=== PATIENT | male | born 1990 | race Caucasian/White ===

== ENCOUNTER 2024-11-20 12:25 | Inpatient (IN) | payer MEDICAID, OTHER ==
[~2024-11-20] VITALS: Ht 177.8 cm; Wt 65.6 kg
--- NOTE | 2024-11-20 13:21 | DVH ---
EXAM: XY CHEST TWO VIEWS ROUTINE HISTORY: CHEST PAIN COMPARISON: None TECHNIQUE: 2 views of the chest were performed. FINDINGS: No pneumothorax, pulmonary edema, or consolidative infiltrates. The heart is not enlarged. No fract ures are identified about the bony thorax. IMPRESSION: No acute intrathoracic process.
--- NOTE | 2024-11-20 13:55 | ED.PDOC ---
GI ASSESSMENT HPI Comments 33 y/o M, presents to the ED for CC of abdominal pain. Patient states, that he has been experiencing abdominal pain xdays. Patient, relays that he is unable to consume regular foods without abdominal discomfort. Patient denies, having similar symptoms in the past. Patient denies social history. Patient denies nausea, vomiting, diarrhea, fever, or headache. No other symptoms or modifying factors at this time. Chief Complaint: Abdominal Pain Time Seen by MD: 13:15 Reviewed Notes: Nurses Notes, Medications, Allergies Information Source: Patient, Relative (Mother) Mode of Arrival: Ambulatory Timing: Days Duration: Since onset Prehospital treatment: None Quality: None Vomitus: None Stool: Normal Severity: None Recent: None Recent Hx of: None Pain Location: Diffuse Modifying Factors: Nothing Associated sign and symptoms: None Past Medical History PAST MEDICAL HISTORY: Asthma Surgical History: Appendectomy Surgical History (Other): RIGHT AND LEFT EARDRUM Family History Family History: Unknown Social History Smoker: Non-Smoker Alcohol: Denies ETOH Use Drugs: Denies Drug Use Lives In: Home Constitutional: denies: chills, diaphoresis, fatigue, fever, malaise, sweats, weakness, others EENTM: denies: blurred vision, double vision, ear bleeding, ear discharge, ear drainage, ear pain, ear ringing, eye pain, eye redness, hearing loss, mouth pain, mouth swelling, nasal discharge, nose bleeding, nose congestion, nose pain, photophobia, tearing, throat pain, throat swelling, voice changes, others Respiratory: denies: cough, hemoptysis, orthopnea, SOB at rest, shortness of breath, SOB with excertion, stridor, wheezing, others Cardiovascular: denies: chest pain, dizzy spells, diaphoresis, Dyspnea on exertion, edema, irregular heart beat, left arm pain, lightheadedness, palpitations, PND, syncope, others Gastrointestinal: reports: abdominal pain; denies: abdomen distended, blood streaked bowels, constipated, diarrhea, dysphagia, difficulty swallowing, hematemesis, melena, nausea, poor appetite, poor fluid intake, rectal bleeding, rectal pain, vomiting, others Genitourinary: denies: burning, dysuria, flank pain, frequency, hematuria, incontinence, penile discharge, penile sore, pain, testicle pain, testicle swelling, urgency, others Neurological: denies: dizziness, fainting, headache, left sided numbness, left sided weakness, numbness, paresthesia, pre-existing deficit, right sided numbness, right sided weakness, seizure, speech problems, tingling, tremors, weakness, others Musculoskeletal: denies: back pain, gout, joint pain, joint swelling, muscle pain, muscle stiffness, neck pain, others Integumetry: denies: bruises, change in color, change in hair/nails, dryness, laceration, lesions, lumps, rash, wounds, others Allergic/Immunocompromised: denies: Difficulty Healing, Frequent Infections, Hives, Itching, others Hematologic/Lymphatic: denies: anemia, blood clots, easy bleeding, easy bruising, swollen glands, others Endocrine: denies: excessive hunger, excessive sweating, excessive thirst, excessive urination, flushing, intolerance to cold, intolerance to heat, unexplained weight gain, unexplained weight loss, others Psychiatric: denies: anxiety, bipolar disorder, depression, hopeless, panic disorder, schizophrenia, sleepless, suicidal, others All Other Systems: Reviewed and Negative Physical Exam General Appearance: Moderate Distress HEENT: Normal ENT Inspection, Pharynx Normal, TMs Normal Neck: Full Range of Motion, Non-Tender, Normal, Normal Inspection Respiratory: Chest Non-Tender, Lungs Clear, No Accessory Muscle Use, No Respiratory Distress, Normal Breath Sounds Cardiovascular: No Edema, No JVD, No Murmur, No Gallop, Normal Peripheral Pulses, Regular Rate/Rhythm Breast Exam: Deferred Gastrointestinal: Epigastric Genitalia: Deferred Pelvic: Deferred Rectal: Deferred Extremities: No calf tenderness, Normal capillary refill, Normal inspection, Normal range of motion, Non-tender, No pedal edema Musculoskeletal : Apperance: Normal Neurologic: Alert, hook loader II-XII nml as Tested, No Motor Deficits, Normal Affect, Normal Mood, No Sensory Deficits Cerebellar Function: Normal Reflexes: Normal Skin: Dry, Normal Color, Warm Peripheral Pulses: 3+ Radial (R), 3+ Radial (L) Lymphatic: No Adenopathy Was a procedure done? Was a procedure done?: No GI differential Dx Differential Diagnosis: Constipation, Diverticular disease, Esophagitis, Gastritis/PUD, Gastroenteritis, Electrolyte Imbalance, Food Poisoning, Bacterial, Viral X-Ray, Labs, Meds, VS Vital Signs Date Time Temp Pulse Resp B/P (MAP) Pulse Ox O2 Delivery O2 Flow Rate FiO2 11/20/24 16:07 98.6 81 109/77 (88) 98 98.6 11/20/24 13:15 98.2 98 12 119/73 (88) 98 11/20/24 13:07 54 Lab Test 11/20/24 14:33 11/20/24 13:44 Range/Units Troponin I High Sensitivity < 3 L 3 L </=54 ng/L White Blood Count 3.5 L 4.4-10.8 10^3/uL Red Blood Count 5.16 4.5-5.90 10^6/uL Hemoglobin 15.0 13.5-17.5 g/dL Hematocrit 43.4 41.0-53.0 % Mean Corpuscular Volume 84.0 80.0-100.0 fL Mean Corpuscular Hemoglobin 29.1 28.0-32.0 pg Mean Corpuscular Hemoglobin Concent 34.6 32.0-36.0 g/dL Red Cell Distribution Width 13.4 11.8-14.3 % Platelet Count 243 140-450 10^3/uL Mean Platelet Volume 7.6 6.9-10.8 fL Neutrophils (%) (Auto) 45.2 37.0-80.0 % Lymphocytes (%) (Auto) 38.7 10.0-50.0 % Monocytes (%) (Auto) 15.1 H 0.0-12.0 % Eosinophils (%) (Auto) 0.2 0.0-7.0 % Basophils (%) (Auto) 0.8 0.0-2.0 % Neutrophils # (Auto) 1.6 1.6-8.6 10 ^3/uL Lymphocytes # (Auto) 1.3 0.4-5.4 10 ^3/uL Monocytes # (Auto) 0.5 0-1.3 10 ^3/uL Eosinophils # (Auto) 0 0-0.8 10 ^3/uL Basophils # (Auto) 0 0-0.2 10 ^3/uL Nucleated Red Blood Cells 0.1 % Sodium Level 138 136-145 mmol/L Potassium Level 3.8 3.5-5.1 mmol/L Chloride Level 100 98-107 mmol/L Carbon Dioxide Level 31 20-31 mmol/L Anion Gap 7 5-15 Blood Urea Nitrogen 11 9-23 mg/dL Creatinine 0.94 0.700-1.30 mg/dL Glomerular Filtration Rate Calc 110 >90 mL/min BUN/Creatinine Ratio 11.7 10.0-20.0 Serum Glucose 94 74-106 mg/dL Calcium Level 9.9 8.7-10.4 mg/dL Total Bilirubin 0.5 0.2-1.0 mg/dL Aspartate Amino Transferase (AST) 61 H 13-40 U/L Alanine Aminotransferase (ALT) 55 H 7-40 U/L Alkaline Phosphatase 148 H 46-116 U/L Total Protein 7.7 5.7-8.2 g/dL Albumin 5.1 H 3.2-4.8 g/dL [place] [id number] Ph: [phone] DIAGNOSTIC IMAGING Diagnostic Imaging Report : [id number] Signed PATIENT: CHRIS MICHELE ACCT: [id number] UNIT: [id number] : 1990 LOC: ER ROOM / BED: / AGE / SEX: 33 / M ADM STATUS: REG ER SERVICE 1301 ORDERING PHYSICIAN: JEVON CHAVEZ MD PROCEDURE(s): CXR2 - CHEST TWO VIEWS ROUTINE REASON: CHEST PAIN ORDER NUMBER(s): [id number], ACCESSION NUMBER(s): [id number] EXAM: XY CHEST TWO VIEWS ROUTINE HISTORY: CHEST PAIN COMPARISON: None TECHNIQUE: 2 views of the chest were performed. FINDINGS: No pneumothorax, pulmonary edema, or consolidative infiltrates. The heart is not enlarged. No fractures are identified about the bony thorax. IMPRESSION: No acute intrathoracic process. ATED BY: RACIEL FAJARDO MD DICTATED DATE/TIME: 11/20/241317 SIGNED BY: RACIEL FAJARDO MD SIGNED DATE/TIME: 11/20/241317 CC: Patient alert. Complaining of epigastric pain. Vitals stable. Answering all questions. Liver profile elevated. Chest x-ray reviewed does not show any acute process. Reviewed his previous visit. Explained to the patient. Continue cardiac monitoring. Time of 1ST Reevaluation: 13:45 Reevaluation 1ST: Unchanged Patient Education/Counseling: Diagnosis, Treatment Family Education/Counseling: Diagnosis, Treatment Departure 1 Departure Time of Disposition: 16:24 Impression: Primary Impression: Acute abdominal pain Additional Impression: Elevated liver enzymes Disposition: ADMITTED INPATIENT Admit to: Med Surg Condition: Guarded Critical Care Note Critical Care Time?: No Stability Stability form required: No Heart Score Heart Score: Heart Score Response (Comments) Value History N/A 0 EKG N/A 0 Age N/A 0 Risk Factors N/A 0 Troponin N/A 0 Total 0 I personally scribed for MAGDALENA TAFOYA MD ([email or web address]) on 11/20/24 at 13:55. Electronically submitted by Bettye Cooper ([email or web address]). I personally scribed for MAGDALENA TAFOYA MD ([email or web address]) on 11/20/24 at 15:12. Electronically submitted by Bettye Cooper ([email or web address]). MAGDALENA TAFOYA MD Nov 20, 2024 13:55
[2024-11-20 14:02] LABS: Basophils # (auto) 0 10 ^3/uL (0-0.2); Basophils % (auto) 0.8 % (0.0-2.0); Eosinophils # (auto) 0 10 ^3/uL (0-0.8); Eosinophils % (auto) 0.2 % (0.0-7.0); Hematocrit 43.4 % (41.0-53.0); Lymphocytes # (auto) 1.3 10 ^3/uL (0.4-5.4); Lymphocytes % (auto) 38.7 % (10.0-50.0); Mean Corpuscular Hemoglobin 29.1 pg (28.0-32.0); Mean Corpuscular Hgb Conc. 34.6 g/dL (32.0-36.0); Monocytes # (auto) 0.5 10 ^3/uL (0-1.3); Monocytes % (auto) 15.1 % (0.0-12.0); Neutrophils # (auto) 1.6 10 ^3/uL (1.6-8.6); Neutrophils % (auto) 45.2 % (37.0-80.0); Nucleated Red Blood Cells % 0.1 %; Platelet Count (auto) 243 10^3/uL (140-450); Red Blood Cells 5.16 10^6/uL (4.5-5.90); Red Cell Distribution Width 13.4 % (11.8-14.3); White Blood Cell 3.5 10^3/uL (4.4-10.8)
[2024-11-20 14:29] LABS: Anion Gap 7 (5-15); BUN/Creatinine Ratio 11.7 (10.0-20.0); Bilirubin, Total 0.5 mg/dL (0.2-1.0); Blood Urea Nitrogen 11 mg/dL (9-23); Calcium 9.9 mg/dL (8.7-10.4); Carbon Dioxide 31 mmol/L (20-31); Chloride 100 mmol/L (98-107); Glucose 94 mg/dL (74-106); Potassium 3.8 mmol/L (3.5-5.1); Sodium 138 mmol/L (136-145); Total Protein 7.7 g/dL (5.7-8.2)
[2024-11-20 14:31] LABS: Alkaline Phosphatase 148 U/L (46-116)
[2024-11-20 14:32] LABS: Alanine Aminotransferase 55 U/L (7-40); Albumin 5.1 g/dL (3.2-4.8); Aspartate Aminotransferase 61 U/L (13-40)
--- NOTE | 2024-11-20 16:48 | DVH ---
CT ABDOMEN AND PELVIS WITHOUT CONTRAST CLINICAL HISTORY: liver TECHNIQUE: Multiple contiguous axial images of the abdomen and pelvis without intravenous contrast. The images were reformatted degenerate coronal and sagittal reconstructions. All CT scans at this medical facility are performed using dose modulation techniques as appropriate t o a performed exam including the following:Automated exposure control was utilized; adjustment of the MA and/or KV according to patient size; and use of iterative reconstruction technique. Radiation Dose Information: CT Dose: CTDI volume is 5.6 mGy. Dose-length product is 306 mGy*cm Comparison: None FINDINGS: Evaluation of the abdomen and pelvis is limited without intravenous contrast. The liver, gallbladder, pancreas, kidneys, adrenal glands, and spleen appear within normal limits. There is no gross evidence of abdominal lymphadenopathy. There is no free fluid or free air. The stomach grossly appears unremarkable. The small and large bowel loops demonstrate normal caliber and appear within normal limits.. The appendix is not readily seen in the right lower quadrant abdo men. There are no secondary signs of acute appendicitis. The abdominal aorta and IVC appear within normal limits. Bladder is poorly filled limiting evaluation. Pelvic organ appears within normal limits. There is no gross evidence of a pelvic mass. There is no free fluid collection. Lung bases are clear. There is no acute osseous abnormality. IMPRESSION: 1. There is no acute process in the abdomen and pelvis. HS:Y
[2024-11-20 19:27] VITALS: RESP 15; O2SAT 98
[2024-11-20 21:16] LABS: Urine Bacteria None Seen /hpf (None Seen)
[2024-11-20 21:27] LABS: Urine Amorphous Crystal FEW /hpf (None Seen); Urine Blood 1+ /uL (Negative); Urine Clarity Turbid (Clear); Urine Color Yellow (Yellow); Urine Mucus FEW (None Seen); Urine Protein, UAD TRACE (Negative); Urine Squamous Epithelial Cell FEW /hpf (<5); Urine Urobilinogen Normal (Negative); Urine WBC 3 /HPF (0-3); Urine pH 5.5 (5.0-9.0)
--- NOTE | 2024-11-20 22:21 | DVHHPRES ---
History of Present Illness Resident Creating Document: ELIZABETH MENDIETA RESDIENT History of Present Illness This is a 33-year-old past medical history of mild intellectual disability, asthma brought to the hospital due to abdominal pain for 1-2 weeks. Per patient's mother's/caregiver the patient has been complaining of epigastric abdominal pain, constant, burning in nature, 7/10 in intensity which fluctuates over time but with no specific exacerbating or relieving factor. Patient also reports dry cough. Patient denies fever, chest pain, shortness of breaths, nausea, vomiting, constipation or diarrhea. PMHx: Intellectual disability, asthma PSHx: Appendectomy 1 year back Social history: Patient lives with the mother at home, mother is caregiver due to patient's intellectual disability, patient is independent in most of daily activities, denies small, drinking or any other drug use Home medication: Inhaler for the asthma Review of Systems Review of Systems General: patient denies fever, fatigue, weaknes, sweating, any recent changes in appetite and weight HEENT: No headaches, visiual changes, hearing loss, tinnitus, nasal congestion and discharge, and sore throat. Cardiovascular: Denies chest pain, palpitations, dyspnea on exertion, orthopnea, or claudication. Respiratory: Reports dry cough Gastrointestinal: Reports abdominal pain Genitourinary: No dysuria, hematuria, discharge, frequency, urgency, nocturia, incontinence, and urinary retention. Endocrine: No heat or cold intolerance, polydipsia, polyuria, and polyphagia. Neurological: No dizziness, extremity weakness and numbness, tremors, gait disturbance, seizures, and memory impairment. Psychiatric: Denies depression, anxiety,or insomnia. Musculoskeletal: Denies neck pain, stiffness and swelling, back pain, muscle weakness, joint pain, stiffness, swelling, or limited range of motion. Skin: No rashes, itching, skin lesion, changes in hair, nail, skin texture and breast. Hematologic/Lymphatic: Denies easy bruising, bleeding tendencies, or lymph node enlargement. Allergies: Uncoded Allergies: codiene (Allergy, Unknown, 11/21/24) Exam Vital Signs Vital Signs Date Time Temp Pulse Resp B/P (MAP) Pulse Ox O2 Delivery O2 Flow Rate FiO2 11/20/24 19:31 98.1 71 20 101/67 (78) 100 98.1 11/20/24 19:31 Room Air 1/28/25 19:27 0 21 Exam General Appearance: Alert, Oriented X3, Cooperative, No acute distress HEENT: Atraumatic, PERRLA, EOMI, Mucous membrane moist/pink Respiratory: Clear to auscultation, Normal air movement Cardiovascular: Regular rate, Normal S1, Normal S2, No murmurs, no chest wall tenderness Abdominal: Mild epigastric tenderness on palpation Extremities: No clubbing, No cyanosis, No edema, Normal pulses, No tenderness/swelling Skin: No rashes, No breakdown, No significant lesion Neuro: Normal gait, Normal speech, Strength at 5/5 X4 ext, Normal tone, Sensation intact, Cranial nerves 3-12 NL, Reflexes 2+ Psych/Mental Status: Mental status NL, Mood NL Labs/Xrays Labs Test 11/20/24 21:14 11/20/24 17:04 11/20/24 13:44 Range/Units Urine Color Yellow Yellow Urine Clarity Turbid H Clear Urine pH 5.5 5.0-9.0 Urine Specific [place] 1.020 1.001-1.035 Urine Protein Trace H Negative Urine Ketones Negative Negative Urine Blood 1+ H Negative /uL Urine Nitrite Negative Negative Urine Bilirubin Negative Negative Urine Urobilinogen Normal Negative mg/dL Urine Leukocyte Esterase Negative Negative /uL Urine RBC 3 0 - 3 /hpf Urine Microscopic WBC 3 0-3 /HPF Urine Squamous Epithelial Cells Few <5 /hpf Urine Amorphous Crystals Few None Seen /hpf Urine Bacteria None seen None Seen /hpf Urine Mucus Few None Seen Urine Glucose Normal Normal mg/dL Troponin I High Sensitivity 3 L </=54 ng/L White Blood Count 3.5 L 4.4-10.8 10^3/uL Red Blood Count 5.16 4.5-5.90 10^6/uL Hemoglobin 15.0 13.5-17.5 g/dL Hematocrit 43.4 41.0-53.0 % Mean Corpuscular Volume 84.0 80.0-100.0 fL Mean Corpuscular Hemoglobin 29.1 28.0-32.0 pg Mean Corpuscular Hemoglobin Concent 34.6 32.0-36.0 g/dL Red Cell Distribution Width 13.4 11.8-14.3 % Platelet Count 243 140-450 10^3/uL Mean Platelet Volume 7.6 6.9-10.8 fL Neutrophils (%) (Auto) 45.2 37.0-80.0 % Lymphocytes (%) (Auto) 38.7 10.0-50.0 % Monocytes (%) (Auto) 15.1 H 0.0-12.0 % Eosinophils (%) (Auto) 0.2 0.0-7.0 % Basophils (%) (Auto) 0.8 0.0-2.0 % Neutrophils # (Auto) 1.6 1.6-8.6 10 ^3/uL Lymphocytes # (Auto) 1.3 0.4-5.4 10 ^3/uL Monocytes # (Auto) 0.5 0-1.3 10 ^3/uL Eosinophils # (Auto) 0 0-0.8 10 ^3/uL Basophils # (Auto) 0 0-0.2 10 ^3/uL Nucleated Red Blood Cells 0.1 % Sodium Level 138 136-145 mmol/L Potassium Level 3.8 3.5-5.1 mmol/L Chloride Level 100 98-107 mmol/L Carbon Dioxide Level 31 20-31 mmol/L Anion Gap 7 5-15 Blood Urea Nitrogen 11 9-23 mg/dL Creatinine 0.94 0.700-1.30 mg/dL Glomerular Filtration Rate Calc 110 >90 mL/min BUN/Creatinine Ratio 11.7 10.0-20.0 Serum Glucose 94 74-106 mg/dL Calcium Level 9.9 8.7-10.4 mg/dL Total Bilirubin 0.5 0.2-1.0 mg/dL Aspartate Amino Transferase (AST) 61 H 13-40 U/L Alanine Aminotransferase (ALT) 55 H 7-40 U/L Alkaline Phosphatase 148 H 46-116 U/L Total Protein 7.7 5.7-8.2 g/dL Albumin 5.1 H 3.2-4.8 g/dL Assessment/Plan Assessment/Plan Intractable abdominal pain, likely due to gastritis Abdominal CT scan is unremarkable IV normal saline Protonix Ondansetron p.r.n. History of asthma, stable History of intellectual disability Transaminitis Liver ultrasound shows mild apparent gallbladder wall thickening DIET: Clear liquid diet GI PROPHYLAXIS:: Protonix DISPOSITION: Med/surge Patient's status and paln discussed with the patient and mother/caregiver at the bedside. Case discussed with Dr. Foster. Plan discussed with: Patient, Other (RN) Date of Service: Nov 20, 2024 Billing Provider: ARSH IVAN MD Common Visit Codes: [id number] INP/OBS CARE (HIGH) ELIZABETH MENDIETA RESDIFATIMAH Nov 20, 2024 22:21 ARSH IVAN MD Nov 21, 2024 23:14
[2024-11-20] MEDS: SODIUM CHLORIDE 0.9% 1,000 ML IV ONE (23:00)
[2024-11-20] MEDS ORDERED: ONDANSETRON HCL 4 MG/2 ML VIAL IV PRN (23:00)
[2024-11-20 23:18] LABS: Lipase 32 U/L (12-53)
[2024-11-20 23:19] LABS: Magnesium 2.2 mg/dL (1.6-2.6)
[2024-11-20 23:45] LABS: Blood Alcohol < 3.0 mg/dL (<10)
[2024-11-21] VITALS (9 sets, daily range): BP systolic 101–114; BP diastolic 50–68; PULSE 65–105; RESP 14–62; TEMP 97.9–98.5; O2SAT 96–98
--- NOTE | 2024-11-21 01:31 | DVH ---
RIGHT UPPER QUADRANT ABDOMINAL ULTRASOUND CLINICAL HISTORY: raised LFT COMPARISON: None TECHNIQUE: Grayscale and color Doppler ultrasound imaging of the right upper quadrant is performed. FINDINGS: Pancreas: Visualized portions appear grossly unremarkable. Liver: No discrete hepatic lesions as visualized. The portal vein appears patent. Gallbladder: No sizable cholelithiasis. No sonographic fernández's sign elicited. Gallbladder wall thick ening may be in part due to underdistention. Common bile duct: Nondilated. Right Kidney: Measures 10.7 cm in length. No hydronephrosis. Right upper quadrant Inferior vena cava: The visualized portions appear grossly patent. IMPRESSION: Mild apparent gallbladder wall thickening may be in part due to underdistention. Otherwise no sonogra phic evidence of cholelithiasis or cholecystitis at this time. HS:Y
[2024-11-21 03:25] LABS: COVID19 ANTIGEN SOFIA FIA NEGATIVE (NEGATIVE); Rapid Influenza A Negative (Negative); Rapid Influenza B Negative (Negative)
[2024-11-21 04:52] LABS: Amphetamine Screen, Urine Neg (NEGATIVE); Barbiturate Scree,Urine Neg (NEGATIVE); Benzodiazephine Screen, Urine Neg (NEGATIVE); Cannabinoid Screen, Urine Neg (NEGATIVE); Cocaine Screen, Urine Neg (NEGATIVE); Opiate Scree,Urine Neg (NEGATIVE); Phencyclidine Screen, Urine Neg (NEGATIVE)
[2024-11-21] MEDS: PANTOPRAZOLE 40 MG/10 ML VIAL INJ IV ONE (05:21)
--- NOTE | 2024-11-21 10:42 | DVHPN2 ---
Subjective The patient is seen and examined at bedside. He is very slow response. Complain of abdominal pain. Reviewed: Care Plan, H&P, Labs, Medications, Previous Orders, Radiology Changes from previous H/P or p: No Changes Objective Vitals Vital Signs Date Time Temp Pulse Resp B/P (MAP) Pulse Ox O2 Delivery O2 Flow Rate FiO2 11/21/24 09:00 97.9 71 14 104/54 (71) 97 97.9 11/21/24 04:57 Room Air* 0 21 Intake/Output Intake and Output 11/21/24 07:00 Intake Total 0 ml Balance 0 ml Intake Oral 0 ml General Appearance: Alert, Cooperative, No acute distress HEENT: Atraumatic, PERRLA, EOMI, Mucous membr. moist/pink Neck: Supple Lungs: Clear to auscultation, Normal air movement Cardiovascular: Regular rate, Normal S1, Normal S2, No murmurs, Gallops, Rubs Abdomen: Normal bowel sounds, Soft, No tenderness, No hepatospenomegaly Neuro: Cranial nerves 3-12 NL Psych/Mental Status: Mental status NL Medications Current Medications Medications Dose Ordered Sig/Roberto Route Start Time Stop Time Status Last Admin Dose Admin Ondansetron HCl 4 mg Q8HPRN PRN IV 11/20/24 23:00 Acetaminophen/ Hydrocodone Bitart 1 tab Q6HPRN PRN PO 11/20/24 23:00 UNV Pantoprazole Sodium 40 mg DAILY IV 11/22/24 10:00 Laboratory Results Laboratory Tests 11/20/24 13:44 Chemistry Test 11/20/24 13:44 11/20/24 17:04 Albumin 5.1 g/dL (3.2-4.8) H Calcium Level 9.9 mg/dL (8.7-10.4) Total Protein 7.7 g/dL (5.7-8.2) Magnesium Level 2.2 mg/dL (1.6-2.6) Lipid panel Test 11/20/24 17:04 Lipase 32 U/L (12-53) LFT Test 11/20/24 13:44 Alanine Aminotransferase (ALT) 55 U/L (7-40) H Alkaline Phosphatase 148 U/L (46-116) H Aspartate Amino Transferase (AST) 61 U/L (13-40) H Total Bilirubin 0.5 mg/dL (0.2-1.0) Urinalysis Test 11/20/24 21:14 Urine Color Yellow (Yellow) Urine Clarity Turbid (Clear) H Urine pH 5.5 (5.0-9.0) Urine Specific [place] 1.020 (1.001-1.035) Urine Protein Trace (Negative) H Urine Ketones Negative (Negative) Urine Blood 1+ /uL (Negative) H Urine Nitrite Negative (Negative) Urine Bilirubin Negative (Negative) Urine Urobilinogen Normal mg/dL (Negative) Urine Leukocyte Esterase Negative /uL (Negative) Urine RBC 3 /hpf (0 - 3) Urine Microscopic WBC 3 /HPF (0-3) Urine Squamous Epithelial Cells Few /hpf (<5) Urine Amorphous Crystals Few /hpf (None Seen) Urine Bacteria None seen /hpf (None Seen) Urine Mucus Few (None Seen) Urine Glucose Normal mg/dL (Normal) Labs and/or images reviewed: Labs reviewed by me Assessment/Plan Assessment/Plan Intractable abdominal pain, likely due to gastritis History of asthma, stable History of intellectual disability Transaminitis Continue zofran Continue with Pain medication Waiting for GI specialist for see the patient Plan discussed with: Patient Date of Service: Nov 21, 2024 Billing Provider: SAUD LY MD Common Visit Codes: [id number] INP/OBS CARE(HIGH) SAUD LY MD Nov 21, 2024 10:42
--- NOTE | 2024-11-21 16:53 | DVHCONRES ---
Date Seen: Nov 21, 2024 Resident Creating Document: BELINDA CORONADO History of Present Illness Mr. Maza is a 33-year-old male patient with PMHx hepatic steatosis, intellectual disability, appendectomy 1 year back, asthma who presented to the hospital with a chief complaint of epigastric pain for the past 2 weeks which is on and off and burning in nature. Patient rates it 7/10 in intensity. Denies any weight loss, nausea/vomiting or constipation or diarrhea. Last bowel movement was 11/19. PMHx: Intellectual disability, asthma, hepatic steatosis PSHx: Appendectomy 1 year back Social history: Patient lives with the mother at home, mother is caregiver due to patient's intellectual disability, patient is independent in most of daily activities, denies smoking, drinking or any other drug use Home medication: Inhaler for the asthma Patient seen and examined at the bedside. No acute distress. EGD scheduled for tomorrow. NPO after breakfast. Family History: Asthma G8 MOTHER G8 FATHER Cerebrovascular accident (CVA) G8 FATHER Chronic obstructive pulmonary disease G8 MOTHER FH: congestive heart failure G8 MOTHER FH: heart attack G8 MOTHER FHx: heart disease G8 FATHER Hypertension G8 MOTHER Allergies: Uncoded Allergies: codiene (Allergy, Unknown, 11/21/24) Current Medications Current Medications Medications (Trade) Dose Ordered Sig/Roberto Route PRN Reason Start Time Stop Time Status Last Admin Ondansetron HCl (Zofran) 4 mg Q8HPRN PRN IV NAUSEA / VOMITING 11/20/24 23:00 Acetaminophen/ Hydrocodone Bitart ([place] 5/325MG Tab) 1 tab Q6HPRN PRN PO MODERATE PAIN (4-6 PAIN SCALE) 11/20/24 23:00 Pantoprazole Sodium (Protonix) 40 mg DAILY IV 11/22/24 10:00 Vital Signs Vital Signs Date Time Temp Pulse Resp B/P (MAP) Pulse Ox O2 Delivery O2 Flow Rate FiO2 11/21/24 14:30 98.2 71 14 101/56 (71) 97 98.2 11/21/24 08:00 Room Air* 0 21 Physical Exam Patient lying in bed, in no acute distress General: Well-built, afebrile, palor, mucosae are moist Cardiovascular: Regular S1 and S2. No murmurs, gallops or rubs. No JVD elevation. No pedal edema Respiratory: Normal B/L air entry on room air. Clear lung sounds on auscultation Abdomen: Soft, nontender, nondistended, normoactive bowel sounds, no rebound tenderness, no organomegaly, no masses Genitourinary: Deferred MSK/skin: Mobilizes 4 limbs. Skin is dry and warm Neurological: No motor, no sensitive deficits, normal speech. Pupils are isocoric and reactive. Psych/Mental Status: A/Ox3 Labs/Diagnostic Data Labs Test 11/21/24 02:04 11/20/24 23:58 11/20/24 21:14 11/20/24 17:04 Range/Units Influenza Type A Antigen Negative Negative Influenza Type B Antigen Negative Negative SARS-CoV-2 Antigen (Rapid) Negative NEGATIVE Urine Color Yellow Yellow Urine Clarity Turbid H Clear Urine pH 5.5 5.0-9.0 Urine Specific [place] 1.020 1.001-1.035 Urine Protein Trace H Negative Urine Ketones Negative Negative Urine Blood 1+ H Negative /uL Urine Nitrite Negative Negative Urine Bilirubin Negative Negative Urine Urobilinogen Normal Negative mg/dL Urine Leukocyte Esterase Negative Negative /uL Urine RBC 3 0 - 3 /hpf Urine Microscopic WBC 3 0-3 /HPF Urine Squamous Epithelial Cells Few <5 /hpf Urine Amorphous Crystals Few None Seen /hpf Urine Bacteria None seen None Seen /hpf Urine Mucus Few None Seen Urine Glucose Normal Normal mg/dL Urine Opiates Screen Neg NEGATIVE Urine Fentanyl Screen Neg NEGATIVE Urine Barbiturates Screen Neg NEGATIVE Urine Phencyclidine Screen Neg NEGATIVE Urine Amphetamines Screen Neg NEGATIVE Urine Benzodiazepines Screen Neg NEGATIVE Urine Cocaine Screen Neg NEGATIVE Urine Cannabinoids Screen Neg NEGATIVE Magnesium Level 2.2 1.6-2.6 mg/dL Troponin I High Sensitivity 3 L </=54 ng/L Lipase 32 12-53 U/L Plasma/Serum Blood Alcohol < 3.0 <10 mg/dL Test 11/20/24 13:44 Range/Units White Blood Count 3.5 L 4.4-10.8 10^3/uL Red Blood Count 5.16 4.5-5.90 10^6/uL Hemoglobin 15.0 13.5-17.5 g/dL Hematocrit 43.4 41.0-53.0 % Mean Corpuscular Volume 84.0 80.0-100.0 fL Mean Corpuscular Hemoglobin 29.1 28.0-32.0 pg Mean Corpuscular Hemoglobin Concent 34.6 32.0-36.0 g/dL Red Cell Distribution Width 13.4 11.8-14.3 % Platelet Count 243 140-450 10^3/uL Mean Platelet Volume 7.6 6.9-10.8 fL Neutrophils (%) (Auto) 45.2 37.0-80.0 % Lymphocytes (%) (Auto) 38.7 10.0-50.0 % Monocytes (%) (Auto) 15.1 H 0.0-12.0 % Eosinophils (%) (Auto) 0.2 0.0-7.0 % Basophils (%) (Auto) 0.8 0.0-2.0 % Neutrophils # (Auto) 1.6 1.6-8.6 10 ^3/uL Lymphocytes # (Auto) 1.3 0.4-5.4 10 ^3/uL Monocytes # (Auto) 0.5 0-1.3 10 ^3/uL Eosinophils # (Auto) 0 0-0.8 10 ^3/uL Basophils # (Auto) 0 0-0.2 10 ^3/uL Nucleated Red Blood Cells 0.1 % Sodium Level 138 136-145 mmol/L Potassium Level 3.8 3.5-5.1 mmol/L Chloride Level 100 98-107 mmol/L Carbon Dioxide Level 31 20-31 mmol/L Anion Gap 7 5-15 Blood Urea Nitrogen 11 9-23 mg/dL Creatinine 0.94 0.700-1.30 mg/dL Glomerular Filtration Rate Calc 110 >90 mL/min BUN/Creatinine Ratio 11.7 10.0-20.0 Serum Glucose 94 74-106 mg/dL Calcium Level 9.9 8.7-10.4 mg/dL Total Bilirubin 0.5 0.2-1.0 mg/dL Aspartate Amino Transferase (AST) 61 H 13-40 U/L Alanine Aminotransferase (ALT) 55 H 7-40 U/L Alkaline Phosphatase 148 H 46-116 U/L Total Protein 7.7 5.7-8.2 g/dL Albumin 5.1 H 3.2-4.8 g/dL Assessment Epigastric pain, secondary to GERD versus peptic ulcer disease History of hepatic steatosis History of appendectomy 1 year back Asthma - controlled Intellectual disability CT abdomen pelvis unremarkable Liver ultrasound shows Mild apparent gallbladder wall thickening may be in part due to underdistention. Plan: Scheduled for upper EGD 11/22, NPO after breakfast Continue pantoprazole 40 mg daily Follow up with a HIDA scan Follow up with hepatitis panel Plan discussed with patient and mother at the bedside in which all questions have been answered Case discussed with Dr. Majano Plan discussed with: Patient, Other (Mother at the bedside) BELINDA CORONADO RESIDENT Nov 21, 2024 16:53
[2024-11-21] MEDS: HYDROcodone-ACET 5/325MG TAB PO PRN (21:42)
[2024-11-22] VITALS (8 sets, daily range): BP systolic 90–97; BP diastolic 47–60; PULSE 61–78; RESP 15–20; TEMP 97.7–98.7; O2SAT 96–98
[2024-11-22 08:22] LABS: Basophils # (auto) 0 10 ^3/uL (0-0.2); Basophils % (auto) 0.7 % (0.0-2.0); Eosinophils # (auto) 0 10 ^3/uL (0-0.8); Eosinophils % (auto) 0.3 % (0.0-7.0); Hematocrit 41.2 % (41.0-53.0); Hemoglobin 14.1 g/dL (13.5-17.5); Lymphocytes # (auto) 2.1 10 ^3/uL (0.4-5.4); Lymphocytes % (auto) 45.3 % (10.0-50.0); Mean Corpuscular Hgb Conc. 34.2 g/dL (32.0-36.0); Mean Corpuscular Volume 84.9 fL (80.0-100.0); Monocytes # (auto) 0.7 10 ^3/uL (0-1.3); Monocytes % (auto) 14.6 % (0.0-12.0); Neutrophils # (auto) 1.8 10 ^3/uL (1.6-8.6); Neutrophils % (auto) 39.1 % (37.0-80.0); Nucleated Red Blood Cells % 0.2 %; Platelet Count (auto) 256 10^3/uL (140-450); Red Blood Cells 4.86 10^6/uL (4.5-5.90); Red Cell Distribution Width 13.3 % (11.8-14.3); White Blood Cell 4.5 10^3/uL (4.4-10.8)
[2024-11-22 08:29] LABS: INR 1.02 (0.9-1.15); Partial Thromboplastin Time 25.8 SEC (24.5-34.5); Prothrombin Time 10.8 sec (9.3-11.8)
[2024-11-22 08:45] LABS: Albumin 4.4 g/dL (3.2-4.8); Anion Gap 8 (5-15); Aspartate Aminotransferase 39 U/L (13-40); BUN/Creatinine Ratio 10.4 (10.0-20.0); Calcium 9.5 mg/dL (8.7-10.4); Carbon Dioxide 26 mmol/L (20-31); Chloride 104 mmol/L (98-107); Glucose 80 mg/dL (74-106); Magnesium 2.5 mg/dL (1.6-2.6); Potassium 3.5 mmol/L (3.5-5.1); Sodium 138 mmol/L (136-145); Total Protein 6.9 g/dL (5.7-8.2)
[2024-11-22 08:46] LABS: Bilirubin, Total 0.8 mg/dL (0.2-1.0)
[2024-11-22 08:48] LABS: Alanine Aminotransferase 54 U/L (7-40); Alkaline Phosphatase 122 U/L (46-116); Blood Urea Nitrogen 8 mg/dL (9-23)
[2024-11-22 08:57] LABS: Hepatitis B Surface Antigen Negative (Negative)
[2024-11-22 09:15] LABS: Hepatitis A Ab IgM Negative; Hepatitis B Core IgM Negative (Negative); Hepatitis C Antibody Negative (Negative)
[2024-11-22] MEDS: PANTOPRAZOLE 40 MG/10 ML VIAL INJ IV SCH (10:35)
--- NOTE | 2024-11-22 11:54 | DVHPN2 ---
Subjective The patient is seen and examined at bedside. He is very slow response. Complain of abdominal pain. Reviewed: Care Plan, H&P, Labs, Medications, Previous Orders, Radiology Changes from previous H/P or p: No Changes Objective Vitals Vital Signs Date Time Temp Pulse Resp B/P (MAP) Pulse Ox O2 Delivery O2 Flow Rate FiO2 11/22/24 09:00 98.1 69 16 94/47 (63) 96 98.1 11/22/24 08:00 Room Air* 0 21 Intake/Output Intake and Output 11/22/24 07:00 Intake Total 250 ml Balance 250 ml Intake Oral 250 ml # Voids 9 General Appearance: Alert, Cooperative, No acute distress HEENT: Atraumatic, PERRLA, EOMI, Mucous membr. moist/pink Neck: Supple Lungs: Clear to auscultation, Normal air movement Cardiovascular: Regular rate, Normal S1, Normal S2, No murmurs, Gallops, Rubs Abdomen: Normal bowel sounds, Soft, No tenderness, No hepatospenomegaly Neuro: Cranial nerves 3-12 NL Psych/Mental Status: Mental status NL Medications Current Medications Medications Dose Ordered Sig/Roberto Route Start Time Stop Time Status Last Admin Dose Admin Ondansetron HCl 4 mg Q8HPRN PRN IV 11/20/24 23:00 Acetaminophen/ Hydrocodone Bitart 1 tab Q6HPRN PRN PO 11/20/24 23:00 11/21/24 21:42 1 TAB Pantoprazole Sodium 40 mg DAILY IV 11/22/24 10:00 11/22/24 10:35 40 MG Laboratory Results Laboratory Tests 11/22/24 07:43 Chemistry Test 11/22/24 07:43 Albumin 4.4 g/dL (3.2-4.8) Calcium Level 9.5 mg/dL (8.7-10.4) Magnesium Level 2.5 mg/dL (1.6-2.6) Total Protein 6.9 g/dL (5.7-8.2) Coagulation Test 11/22/24 07:43 Prothrombin Time 10.8 sec (9.3-11.8) Prothrombin Time INR 1.02 (0.9-1.15) Activated Partial Thromboplast Time 25.8 SEC (24.5-34.5) LFT Test 11/22/24 07:43 Alanine Aminotransferase (ALT) 54 U/L (7-40) H Alkaline Phosphatase 122 U/L (46-116) H Aspartate Amino Transferase (AST) 39 U/L (13-40) Total Bilirubin 0.8 mg/dL (0.2-1.0) Urinalysis Test 11/20/24 21:14 Urine Color Yellow (Yellow) Urine Clarity Turbid (Clear) H Urine pH 5.5 (5.0-9.0) Urine Specific [place] 1.020 (1.001-1.035) Urine Protein Trace (Negative) H Urine Ketones Negative (Negative) Urine Blood 1+ /uL (Negative) H Urine Nitrite Negative (Negative) Urine Bilirubin Negative (Negative) Urine Urobilinogen Normal mg/dL (Negative) Urine Leukocyte Esterase Negative /uL (Negative) Urine RBC 3 /hpf (0 - 3) Urine Microscopic WBC 3 /HPF (0-3) Urine Squamous Epithelial Cells Few /hpf (<5) Urine Amorphous Crystals Few /hpf (None Seen) Urine Bacteria None seen /hpf (None Seen) Urine Mucus Few (None Seen) Urine Glucose Normal mg/dL (Normal) Assessment/Plan Assessment/Plan Intractable abdominal pain, likely due to gastritis History of asthma, stable History of intellectual disability Transaminitis Continue zofran Continue with Pain medication Waiting for GI specialist for see the patient Plan discussed with: Patient My Orders Orders - SAUD LY MD Procedure Category Date Status Time * Gi Dvh Lipstick Molder CONS 11/21/24 Transmitted 13:10 Date of Service: Nov 22, 2024 Billing Provider: SAUD LY MD Common Visit Codes: [id number] INP/OBS CARE(HIGH) SAUD LY MD Nov 22, 2024 11:54
--- NOTE | 2024-11-22 12:01 | DVH ---
Procedure: NM NM HIDA SCAN Exam Date: 11/22/2024 08:23 AM Clinical History: Rule out gallbladder thickening Comparison Study: 11/20 Nuclear Medicine Hepatobiliary Scan. Technique: Following the intravenous administration of 5.5 mCi of technetium 99m labeled Choletec multiple plana r abdominal planar images were obtained in anterior projection in 1 minute intervals for 30 minutes . Right lateral images were obtained at 60 minutes after injection. Findings: The liver appears grossly normal in size. There is no abnormal persistence of the cardiac or blood po ol activity. There is prompt visualization of the gallbladder and excretion of activity into the smal l bowel. Impression: Unremarkable hepatobiliary study without evidence of acute cholecystitis.
[2024-11-22] MEDS ORDERED: DexAMETHasone SOD PHOS 10MG/1ML VIAL INJ IV ONE (14:07)
[2024-11-22] MEDS ORDERED: LIDOCAINE VISCOUS 2% 15ML UD ONE (14:42)
[2024-11-22] MEDS ORDERED: MEPERIDINE HCL (25 MG/ML) 1ML VIAL ONE (14:50)
[2024-11-22] MEDS ORDERED: MIDAZOLAM HCL 2MG/2ML 2ml VIAL (1mg/ml) ONE (14:51)
[2024-11-22] MEDS ORDERED: PROPOFOL 10 MG/ML 20 ML IV ONE (15:09)
--- NOTE | 2024-11-22 15:15 | DVHOP2 ---
Operative Report DATE OF OPERATION: 11/22/24 PROCEDURE: Upper Endoscopy with biopsy. PREOPERATIVE INDICATION: The patient is a 33 -year-old male undergoing endoscopy for epigastric pain POSTOPERATIVE DIAGNOSES: 1. Patient had moderate duodenitis and there was a 1 cm duodenal bulb ulcer with surrounding erythema and hyperemia PROCEDURE PERFORMED BY: Rowdy Majano GI NURSE: Darvin SCOPE: Olympus videoendoscope. ASA CLASS: 2. PREOPERATIVE MEDICATIONS: Mac bill, Dr. Jean PROCEDURE IN DETAIL: After obtaining an informed consent, the patient was placed on left lateral decubitus position. The patient was then sedated with the above medications. A bite block was placed between his teeth. The endoscope was then passed through the oropharynx, into the esophagus, and through the stomach and pylorus up to the second and third part of the duodenum. The endoscope was then withdrawn. Second and 3rd part of the duodenal were normal. Duodenal bulb and postbulbar area showed [id number] duodenitis Patient had a 1 cm duodenal bulb ulcer with surrounding hyperemia erythema. It was Frank classification C with no visible vessel There was no fresh or old blood in the upper GI tract. The pre-pyloric area and antrum showed minimal gastritis. Duodenal and gastric biopsies were obtained. On retroflexion the fundus cardia and angularis were normal. The endoscope was then withdrawn into the distal esophagus where he had a slightly irregular squamocolumnar junction. There was 5 mm extension of columnar epithelium into the distal esophagus with no esophagitis. The remaining distal and proximal esophagus and oropharynx were unremarkable The patient tolerated the procedure well without difficulty. COMPLICATIONS : None SPECIMENS: Duodenal biopsies Gastric biopsies DISPOSITION: Transfer back to the floor Stable PLAN: 1. Await for biopsy result 2. Will place pt on Protonix 40 mg bid 3. Carafate 1 g p.o. 4 times a day 4. Start full liquid diet advance to soft mechanical 5. DC aspirin NSAIDs smoking alcohol 6. Outpatient follow up with me in 4-6 weeks to review results and discuss further management ROWDY MAJANO MD Nov 22, 2024 15:15
[2024-11-22] MEDS: SUCRALFATE 1 GM/10 ML ORAL SUSP PO SCH (16:34)
[2024-11-23 01:00] VITALS: BP 98/59; PULSE 66; RESP 20; TEMP 98.1; O2SAT 97
[2024-11-23 05:00] VITALS: BP 96/56; PULSE 55; RESP 20; TEMP 98.2; O2SAT 96
[2024-11-23 09:00] VITALS: BP 99/59; PULSE 71; RESP 18; TEMP 97.7; O2SAT 97
--- NOTE | 2024-11-23 09:17 | DVHPN2 ---
Progress Note Date Seen: Nov 23, 2024 Resident Creating Document: BELIDNA CORONADO RESIDENT Medical Necessity Reason Pt with a Central, PICC or Fol: No Subjective Review of Systems Mr. Maza is a 33-year-old male patient with PMHx hepatic steatosis, intellectual disability, appendectomy 1 year back, asthma who presented to the hospital with a chief complaint of epigastric pain for the past 2 weeks which is on and off and burning in nature. Patient rates it 7/10 in intensity. Denies any weight loss, nausea/vomiting or constipation or diarrhea. Last bowel movement was 11/19. PMHx: Intellectual disability, asthma, hepatic steatosis PSHx: Appendectomy 1 year back Social history: Patient lives with the mother at home, mother is caregiver due to patient's intellectual disability, patient is independent in most of daily activities, denies smoking, drinking or any other drug use Home medication: Inhaler for the asthma Patient seen and examined at the bedside. No active complaint. Objective vital signs Vital Sign Date Time Temp Pulse Resp B/P (MAP) Pulse Ox O2 Delivery O2 Flow Rate FiO2 11/23/24 05:00 98.2 55 20 96/56 (69) 96 98.2 11/22/24 20:00 Room Air* 0 21 Total Intake and Output 11/22/24 11/22/24 11/23/24 15:00 23:00 07:00 Intake Total 500 ml Output Total 500 ml Balance 0 ml medications Current Medications Medications Dose Ordered Sig/Roberto Route Start Time Stop Time Status Last Admin Dose Admin Ondansetron HCl 4 mg Q8HPRN PRN IV 11/20/24 23:00 Acetaminophen/ Hydrocodone Bitart 1 tab Q6HPRN PRN PO 11/20/24 23:00 11/21/24 21:42 1 TAB Pantoprazole Sodium 40 mg DAILY IV 11/22/24 10:00 11/22/24 10:35 40 MG Sucralfate 1 gm QID@0600,1130,1700,2200 PO 11/22/24 17:00 11/23/24 05:50 1 GM Examination Patient lying in bed, in no acute distress General: Well-built, afebrile, palor, mucosae are moist Cardiovascular: Regular S1 and S2. No murmurs, gallops or rubs. No JVD elevation. No pedal edema Respiratory: Normal B/L air entry on room air. Clear lung sounds on auscultation Abdomen: Soft, nontender, nondistended, normoactive bowel sounds, no rebound tenderness, no organomegaly, no masses Genitourinary: Deferred MSK/skin: Mobilizes 4 limbs. Skin is dry and warm Neurological: No motor, no sensitive deficits, normal speech. Pupils are isocoric and reactive. Psych/Mental Status: A/Ox3 laboratory and microbiology Laboratory Tests 11/22/24 07:43 Test 11/22/24 07:43 Range/Units Serum Glucose 80 74-106 mg/dL Labs and/or images reviewed: Labs reviewed by me, Image(s) reviewed by me Problem List/Assessment/Plan Problem List/Assessment/Plan Epigastric pain, secondary to moderate duodenitis and duodenal ulcer History of hepatic steatosis History of appendectomy 1 year back Asthma - controlled Intellectual disability CT abdomen pelvis unremarkable Liver ultrasound shows Mild apparent gallbladder wall thickening may be in part due to underdistention. Plan: Upper EGD completed 11/22/2024 shows moderate duodenitis and 1 cm duodenal bulb ulcer with surrounding erythema and hyperemia. Follow up with GI outpatient for biopsy results in 4-6 weeks and to discuss further management. Patient is stable to be discharged. Continue pantoprazole 40 mg twice daily and Carafate 1 g p.o. q.i.d.. Advanced diet as tolerated. Avoid aspirin/NSAIDs/smoking/alcohol Plan discussed with patient and mother at the bedside in which all questions have been answered Case discussed with Dr. Majano Plan discussed with: Patient BELINDA CORONADO RESIDENT Nov 23, 2024 09:17
[2024-11-23] MEDS: POTASSIUM EFFERVESENT TAB 25 MEQ PO ONE (09:30)
--- NOTE | 2024-11-23 11:49 | DVHDS2 ---
Discharge Summary Date of Admission Nov 20, 2024 at 22:21 Date of Discharge: Nov 23, 2024 Admitting Diagnosis Intractable abdominal pain, likely due to gastritis History of asthma, stable History of intellectual disability Transaminitis Labs/Diagnostic Data: Laboratory Results Test 11/22/24 07:43 11/21/24 02:04 11/20/24 23:58 11/20/24 21:14 White Blood Count 4.5 10^3/uL (4.4-10.8) Red Blood Count 4.86 10^6/uL (4.5-5.90) Hemoglobin 14.1 g/dL (13.5-17.5) Hematocrit 41.2 % (41.0-53.0) Mean Corpuscular Volume 84.9 fL (80.0-100.0) Mean Corpuscular Hemoglobin 29.0 pg (28.0-32.0) Mean Corpuscular Hemoglobin Concent 34.2 g/dL (32.0-36.0) Red Cell Distribution Width 13.3 % (11.8-14.3) Platelet Count 256 10^3/uL (140-450) Mean Platelet Volume 7.8 fL (6.9-10.8) Neutrophils (%) (Auto) 39.1 % (37.0-80.0) Lymphocytes (%) (Auto) 45.3 % (10.0-50.0) Monocytes (%) (Auto) 14.6 % (0.0-12.0) Eosinophils (%) (Auto) 0.3 % (0.0-7.0) Basophils (%) (Auto) 0.7 % (0.0-2.0) Neutrophils # (Auto) 1.8 10 ^3/uL (1.6-8.6) Lymphocytes # (Auto) 2.1 10 ^3/uL (0.4-5.4) Monocytes # (Auto) 0.7 10 ^3/uL (0-1.3) Eosinophils # (Auto) 0 10 ^3/uL (0-0.8) Basophils # (Auto) 0 10 ^3/uL (0-0.2) Nucleated Red Blood Cells 0.2 % Prothrombin Time 10.8 sec (9.3-11.8) Prothrombin Time INR 1.02 (0.9-1.15) Activated Partial Thromboplast Time 25.8 SEC (24.5-34.5) Sodium Level 138 mmol/L (136-145) Potassium Level 3.5 mmol/L (3.5-5.1) Chloride Level 104 mmol/L (98-107) Carbon Dioxide Level 26 mmol/L (20-31) Anion Gap 8 (5-15) Blood Urea Nitrogen 8 mg/dL (9-23) Creatinine 0.77 mg/dL (0.700-1.30) Glomerular Filtration Rate Calc 121 mL/min (>90) BUN/Creatinine Ratio 10.4 (10.0-20.0) Serum Glucose 80 mg/dL (74-106) Calcium Level 9.5 mg/dL (8.7-10.4) Magnesium Level 2.5 mg/dL (1.6-2.6) Total Bilirubin 0.8 mg/dL (0.2-1.0) Aspartate Amino Transferase (AST) 39 U/L (13-40) Alanine Aminotransferase (ALT) 54 U/L (7-40) Alkaline Phosphatase 122 U/L (46-116) Total Protein 6.9 g/dL (5.7-8.2) Albumin 4.4 g/dL (3.2-4.8) Influenza Type A Antigen Negative (Negative) Influenza Type B Antigen Negative (Negative) SARS-CoV-2 Antigen (Rapid) Negative (NEGATIVE) Hepatitis A IgM Antibody Negative Hepatitis B Surface Antigen Negative (Negative) Hepatitis B Core IgM Antibody Negative (Negative) Hepatitis C Antibody Negative (Negative) Urine Color Yellow (Yellow) Urine Clarity Turbid (Clear) Urine pH 5.5 (5.0-9.0) Urine Specific [place] 1.020 (1.001-1.035) Urine Protein Trace (Negative) Urine Ketones Negative (Negative) Urine Blood 1+ /uL (Negative) Urine Nitrite Negative (Negative) Urine Bilirubin Negative (Negative) Urine Urobilinogen Normal mg/dL (Negative) Urine Leukocyte Esterase Negative /uL (Negative) Urine RBC 3 /hpf (0 - 3) Urine Microscopic WBC 3 /HPF (0-3) Urine Squamous Epithelial Cells Few /hpf (<5) Urine Amorphous Crystals Few /hpf (None Seen) Urine Bacteria None seen /hpf (None Seen) Urine Mucus Few (None Seen) Urine Glucose Normal mg/dL (Normal) Urine Opiates Screen Neg (NEGATIVE) Urine Fentanyl Screen Neg (NEGATIVE) Urine Barbiturates Screen Neg (NEGATIVE) Urine Phencyclidine Screen Neg (NEGATIVE) Urine Amphetamines Screen Neg (NEGATIVE) Urine Benzodiazepines Screen Neg (NEGATIVE) Urine Cocaine Screen Neg (NEGATIVE) Urine Cannabinoids Screen Neg (NEGATIVE) Test 11/20/24 17:04 Troponin I High Sensitivity 3 ng/L (</=54) Lipase 32 U/L (12-53) Plasma/Serum Blood Alcohol < 3.0 mg/dL (<10) Other Laboratory Tests 11/22/24 07:43 Brief Hx & Hospital Course: This is a 33 years old male with history of mild intellectual disability, asthma, brought in by his mother because of abdominal pain for 1-2 weeks. Per mother the patient had complained of epigastric abdominal pain with constant burning in nature, 7/10 with fluctuating over time. No melena, no bright red blood per rectum. No diarrhea or constipation. CT scan of abdomen and pelvis is negative. GI was consulted. Recommend ultrasound of the liver. Ultrasound showed: Mild apparent gallbladder wall thickening may be in part due to underdistention. Otherwise no sonographic evidence of cholelithiasis or cholecystitis at this time. Subsequently the patient has an MRCP done. It showed unremarkable hepatobiliary study without evidence of acute cholecystitis. EGD showed: Patient had moderate duodenitis and there was a 1 cm duodenal bulb ulcer with surrounding erythema and hyperemia. The patient was put on Protonix 40 mg once per day and Carafate a 1000 mg twice per day. The patient was advised to follow up with GI specialist, Dr. Majano in 4-6 weeks to repeat another EGD to see if the ulcer is healing. Today, the patient is ambulate and not complain of any abdominal pain. Patient tolerated diet. So I am going to discharge him home. Advised him to follow up with primary care physician 1-2 weeks. Follow up with GI specialist per schedule. Activity as tolerated. Diet per home diet. Physical exam: HEENT: Normocephalic atraumatic pupils equal react to light and accommodation. Extraocular muscles intact, conjunctiva pink, oropharynx moist, no thrush, no exudate. Lymphatic: No lymphadenopathy Cardiovascular exam: S1, S2 was heard. No murmurs, rubs, gallops Lung: Clear on auscultation bilaterally, no wheeze, rale, rhonchi. GI: Abdominal soft, nondistended, nontenderness, positive bowel sounds. Extremity: No crepitus, cyanosis, edema. Pedal pulses present bilateral. Full range of motion. Skin: Normal turgor, no rash. Psych: Alert, oriented x3. Neurology: No focal deficits, cranial nerve II to XII grossly intact. This medical document was created using an electronic medical record system with [employer] direct computerized dictation system. Although this document has been carefully reviewed, there may still be some phonetic and typographical errors. These areas are purely typographical due to imperfections of the software programs, and do not reflect any compromise in the patient's medical care. Condition at Discharge: Stable Final Diagnosis/Problems List Intractable abdominal pain, likely due to gastritis History of asthma, stable History of intellectual disability Transaminitis Discharge Disposition: Home Discharge Instruct/Medications Diet: Regular Activity: No Restrictions, As Tolerated Follow Up/Referral: PCP 1-2 weeks GI specialist per schedule Medications: Protonix 40 mg once per day Carafate 1000 mg twice per day Discharge Statement: "Patient was advised to return to the ER or call 911 if any headaches, dizziness, shortness of breath, chest pain, abdominal pain, bleeding, fevers, or worsening of medical condition. Patient was counseled about treatment plan, medications, possible side effects, patientverbalized understanding. All questions were answered to the best of my ability. This discharge took greater then 30 minutes in planning, reviewing documentation, counseling the patient, and discussing with other team members." ASSESSMENT ASSESSMENT Assessment Date of Service: Nov 23, 2024 Billing Provider: SAUD LY MD Common Visit Codes: [id number] DISCH DAY >30min SAUD LY MD Nov 23, 2024 11:49
[2024-11-23] MEDS ORDERED: SUCR1TAB31 PO (11:52)
[2024-11-23] MEDS ORDERED: PANT40TA2 PO ×2 (11:52→12:59)
[2024-11-23] MEDS: POLYETHYLENE GLYCOL 17 GM PWDR PO ONE (12:15)
[2024-11-23 13:00] VITALS: BP 96/58; PULSE 72; RESP 18; TEMP 97.2; O2SAT 98
[2024-11-23] MEDS ORDERED: SUCR1SUS26 PO (13:00)
[2024-11-23 17:00] VITALS: BP 106/63; PULSE 89; RESP 17; TEMP 98; O2SAT 97
[2024-11-23] MEDS ORDERED: PANTOPRAZOLE 40 MG/10 ML VIAL INJ IV SCH (22:00)
== END 2024-11-23 17:40 | disposition home or self-care (01) | DRG 241 ==
LOC: ER 12:25 → OVERFLOW 22:21 → EAST 11-21 04:39
PROVIDERS: ATTEND Internal Medicine
PROC: 0DB78ZX Excision of Stomach, Pylorus, Via Natural or Artificial Opening Endoscopic, Diagnostic (ICD-10-PCS; 2024-11-22)
PROC: 0DB98ZX Excision of Duodenum, Via Natural or Artificial Opening Endoscopic, Diagnostic (ICD-10-PCS; principal; 2024-11-22 14:56)
DX: K29.80 Duodenitis without bleeding (principal); K26.9 Duodenal ulcer, unspecified as acute or chronic, without hemorrhage or perforation; F79 Unspecified intellectual disabilities; K29.70 Gastritis, unspecified, without bleeding; K21.9 Gastro-esophageal reflux disease without esophagitis; J45.909 Unspecified asthma, uncomplicated; R74.01 Elevation of levels of liver transaminase levels; Z90.49 Acquired absence of other specified parts of digestive tract
CPT/HCPCS: 36415; 71046; 74176; 76705; 78226; 80053; 80074; 80307; 80320; 81001; 83690; 83735; 84484; 85025; 85610; 85730; 87426; 87804; G0378; J1100; J2250; J2470; J2704